=== PATIENT | male | born 1990 | race Caucasian/White ===

== ENCOUNTER 2017-03-06 13:25 | Emergency (ER) | payer MEDICAID ==
[~2017-03-06] VITALS: Ht 175.3 cm; Wt 81.9 kg
[2017-03-06 15:37] VITALS: BP 121/74
== END 2017-03-06 15:37 | disposition home or self-care (01) ==
LOC: ED 13:25
DX: S20.211A Contusion of right front wall of thorax, initial encounter (principal); S50.811A Abrasion of right forearm, initial encounter; V87.8XXA Person injured in other specified noncollision transport accidents involving motor vehicle (traffic), initial encounter; Y93.I9 Activity, other involving external motion; Y99.8 Other external cause status; Y92.89 Other specified places as the place of occurrence of the external cause
CPT/HCPCS: J1170; Q0162